=== PATIENT | female | born 1995 | race Caucasian/White ===

== ENCOUNTER 2017-11-15 21:58 | Observation (INO) | payer OTHER, SELFPAY ==
[2017-11-15 22:31] VITALS: BMI 22.3
[2017-11-15] MEDS ORDERED: Ondansetron HCl/PF 4 MG/2 ML Vial IVP PRN (23:15)
[2017-11-15] MEDS ORDERED: Acetaminophen 500 MG TAB PO PRN (23:15)
[2017-11-15] MEDS ORDERED: Lactated Ringer's 1,000 ML IV SCH ×2 (23:15)
[2017-11-15 23:57] LABS: #Eosinphils 0.2 thou/uL (0.0-0.7); #Lymphocytes 1.7 thou/uL (1.20-3.40); #Monocytes 0.9 thou/uL (0.11-0.59); #Neutrophils 6.9 thou/uL (1.40-6.50); %Basophils 0.1 % (0.0-1.0); %Eosinophils 2.2 % (0.0-10.0); %Lymphocytes 17.4 % (21.0-51.0); %Monocytes 9.6 % (0.0-10.0); %Neutrophils 70.7 % (42.0-75.0); Hemoglobin 12.8 g/dL (12.0-16.0); Mean Corpuscular HGB CONC 34.1 g/dL (32.0-36.0); Mean Corpuscular Hemoglobin 31.3 pg (27.0-31.0); Mean Corpuscular Volume 91.8 fl (81.0-99.0); Platelet Count 219 thou/uL (130-400); RBC Distribution Width 11.8 % (11.5-14.5); Red Blood Cell (RBC) Count 4.09 mill/uL (4.20-5.40); White Blood Cell (WBC) Count 9.8 thou/uL (4.8-10.8)
[2017-11-16 00:55] LABS: Bilirubin Negative (Negative); Blood, Urine Large (Negative); Clarity CLEAR (Clear); Glucose, Urine (Dipstick) Negative (Negative); Leukocyte Negative (Negative); Nitrite Negative (Negative); Protein, Urine (Dipstick) Negative (Neg-Trace); Specific Gravity, Urine 1.016 (1.002-1.036)
[2017-11-16 00:57] LABS: Bacteria/HPF None Seen HPF (None Seen); Hyaline Casts/LPF 0-3 HYALINE CAST LPF (0-3 Hyaline); Pathc Cast-AUWi Flag 0.13 (0-2.49); RBC/HPF GREATER THAN 50-TNTC HPF (0-3); Squamous Epithelial 0-3 HPF (0-3); WBC/HPF 0-3 HPF (0-3)
[2017-11-16 07:16] VITALS: BP 97/53; TEMP 98.2
--- NOTE | 2017-11-16 08:56 | HP ---
DATE OF SERVICE: 11/15/2017 CHIEF COMPLAINT: Coital bleeding. HISTORY OF PRESENT ILLNESS: At the time of presentation, Ms. Grubbs is a 3, para 0 female a t 27 weeks 2 days who presents with complaints of bleeding during intercourse. She denies any pain a t the time. This occurred at approximately 9:30-10:00 p.m. She denies any earlier episodes of bleed ing during the and she denies any knowledge of previa or low lying placenta during this pre gnancy. She says she has taken her glucose tolerance test and it was normal. PAST MEDICAL HISTORY: Negative. PAST SURGICAL HISTORY: Negative. PHYSICAL EXAMINATION: VITAL SIGNS: Blood pressure 125/82, repeat 115/70, respiratory rate 20, pulse 90, temperature 97.8. GENERAL: Nontoxic appearing female in no acute distress. OBSTETRIC: heart tracing is reactive with no decelerations. Tocodynamometer showed irritabili ty. GENITOURINARY: Sterile speculum exam was performed. The XO EPTO cervix appeared moderately friable and there is a small 3 cm clot in the vaginal vault. There was no bleeding from within the uterus wi th Valsalva. Cervix was visually closed. LABORATORY DATA: Fibrinogen is 486, platelets 219. White blood cell count 9.8, hematocrit 37.5. Ur inalysis only notable for blood. No significant pyuria. Ultrasound report is pending, but there is normal GAMALIEL. No evidence of previa, no evidence of abrupti on on preliminary read. ASSESSMENT AND PLAN: 1. A 27 week intrauterine with category 1 tracing. 2. Episode of coital bleeding that appears to have been self-limited, although moderate in amount. We will obtain labs, IV fluids and continuous monitoring. Of note, type and screen was done an d patient is Rh positive. We will notify Dr. Becerril or Dr. Thomas.
--- NOTE | 2017-11-16 09:27 | ULT ---
PRELIMINARY REPORT/[facility]/EMERGENCY AFTER HOURS PROCEDURE: EXAM: US After First Trimester, Transabdominal CLINICAL HISTORY: 22 years old, female; Signs and symptoms; Lmp or gestational age (in weeks): 27wks; Antepartum compli cations; Bleeding; TECHNIQUE: Real-time transabdominal obstetrical ultrasound of the maternal pelvis and a second or third trimeste r with image documentation. COMPARISON: No relevant prior studies available. FINDINGS: Single living fetus in cephalic position. Anterior placenta. No visible placental abnormality on the provided images. Amniotic fluid volume within normal limits, GAMALIEL 14.1 cm. Cervical length was estimated with transabdominal scanning, measuring approximately 3.0 cm. No definite cervical canal dilation or fluid on the provided images. BPD: , 6.6 cm. , 26 weeks, 5 days HC: , 25.6 cm. , 27 weeks, 6 days AC: , 20.9 cm. , 25 weeks, 3 days FL: , 4.7 cm. , 25 weeks, 4 days Composite age: 26 weeks, 3 days. Estimated weight: 856 grams. heart activity documented by the technologist, 153 bpm. Detailed/complete evaluation of anatomy was not performed at this time. Visualized anatomy on the provided images appears within normal limits for gestation. Followup of anatomy later in recommended, as clinically appropriate. No visible maternal adnexal abnormality. The urinary bladder was not completely evaluated/imaged at this time. IMPRESSION: Single living fetus, composite age: 26 weeks, 3 days. Anterior placenta. No visible placental abnormality on the provided images. Normal amniotic fluid volume. Other details discussed above. Thank you for allowing us to participate in the care of your patient. Dictated and Authenticated by: Luis Nye MD 11/16/2017 1:17 AM Central Time ([place] & [place]) FINAL REPORT EMERGENCY AFTER HOURS ULTRASOUND GREATER THAN 14 WEEKS: Date: 11/16/17 Time: 0009 hours FINDINGS: Single viable intrauterine fetus is noted in cephalic presentation. Cervix is poorly defined. Amnioti c fluid is within normal limits. heart rate of 153 beats/minute. anatomy was incomplete. Diaphragm, cerebellum, three vessel cord, cord insert, posterior fossa, and nose and lips regions wer e not adequately seen. The remainder of the anatomy was unremarkable. IMPRESSION: Single viable intrauterine fetus, 26 weeks/3 days. EDC 02/18/18. Estimated weight is 856 gm. Report in agreement with preliminary report given on-call by [facility]. POS: NICK
--- NOTE | 2017-11-16 10:14 | DIS ---
DATE OF DISCHARGE: 11/16/2017 TIME OF SERVICE: 0845 SUMMARY OF HOSPITAL COURSE: Please see the patient's observation admission H&P for details on this p atient's and previous antepartum course. She presented with vaginal bleeding, postcoital a nd was observed. She was noted to have a friable cervix. No gross dilatation of the cervix and no o bvious infection. She had no contractions on prolonged monitoring. Ultrasound revealed a cerv ix measuring 3 cm long. No evidence of placenta previa was noted. The patient had no pain and no fu rther bleeding and was discharged home after approximately 8 hours of observation status. She was in structed to avoid having anything put in her vagina and to keep follow up with Dr. Becerril in 2 weeks.
== END 2017-11-16 09:50 | disposition home or self-care (01) ==
LOC: ERS 21:58 → L&D/OP 22:02 → L&D 11-16 01:08
PROVIDERS: ADMIT Obstetrics & Gynecology; ATTEND Obstetrics & Gynecology
DX: O99.89 Other specified diseases and conditions complicating pregnancy, childbirth and the puerperium (principal); N93.0 Postcoital and contact bleeding; N88.8 Other specified noninflammatory disorders of cervix uteri; Z3A.27 27 weeks gestation of pregnancy
CPT/HCPCS: 36415; 59025; 76805; 81001; 85025; 85384; 86850; 86900; 86901; 96361; 96374; 99285; G0378; J2405